=== PATIENT | female | born 1975 | race Caucasian/White ===

== ENCOUNTER 2017-12-16 18:04 | Emergency (ER) | payer OTHER ==
[~2017-12-16] VITALS: Ht 165.1 cm; Wt 90.7 kg
[2017-12-16 18:16] VITALS: BP 142/89
[2017-12-16] MEDS ORDERED: AMOX/CLAVULANATE 875 MG TABLET PO ONE (18:30)
[2017-12-16] MEDS ORDERED: TDAP [DIPH/PERTUSSIS/TET] 0.5 ML VIAL IM ONE ×2 (18:30→18:33)
[2017-12-16] MEDS ORDERED: AMOX/CLAVULANATE 875 MG TABLET ONE (18:33)
== END 2017-12-16 18:40 | disposition home or self-care (01) ==
LOC: ER 18:10
DX: S61.451A Open bite of right hand, initial encounter (principal); Z88.5 Allergy status to narcotic agent; Z88.6 Allergy status to analgesic agent; W55.01XA Bitten by cat, initial encounter; Y93.89 Activity, other specified; Y92.89 Other specified places as the place of occurrence of the external cause; Y99.8 Other external cause status
CPT/HCPCS: 90715; A4606; Z7610